=== PATIENT | male | born 1995 | race Caucasian/White ===

== ENCOUNTER 2017-05-29 12:07 | Emergency (ER) | payer OTHER ==
[~2017-05-29] VITALS: Ht 162.6 cm; Wt 57.0 kg
[~2017-05-29 12:07] MED LIST: VENTOLIN HFA18 GM IH; ZOLPIDEM TARTRAT5 MG PO
[2017-05-29 12:47] LABS: HEMATOCRIT 44.5 % (38.0-50.0); MCH 31.8 PG (29.0-34.0); MCHC 35.1 G/DL (30.0-36.0); MCV 90.6 FL (86-99); MEAN PLAT.VOLUME 10.1 uM^3 (9.0-12.4); PLATELET COUNT 247 K/uL (156-360); RBC DIS.WIDTH-CV 11.8 % (11.8-14.6); RED BLOOD COUNT 4.91 M/uL (4.00-5.50); WHITE BLOOD COUNT 6.3 K/uL (4.1-10.2)
[2017-05-29 12:57] LABS: CHLORIDE 106 mEq/L (99-109); POTASSIUM 4.2 mEq/L (3.7-5.4); SODIUM 143 mEq/L (136-147)
[2017-05-29 12:59] LABS: GLUCOSE 92 mg/dL (70-99)
[2017-05-29 13:01] LABS: ANION GAP 9 MEQ/L (2-14); TOTAL BILIRUBIN 0.7 mg/dL (0.0-1.0)
[2017-05-29 13:03] LABS: ALKALINE PHOSPHATASE 57 IU/L (3-129); GFR ESTIMATE (CALCULATED) > 59 mL/min/
[2017-05-29 13:04] LABS: UREA NITROGEN (BUN) 8 mg/dL (9-23)
[2017-05-29 13:40] LABS: LIPASE 22 U/L (1.0-51.0)
[2017-05-29 14:00] LABS: ADD MIUA? YES; BILIRUBIN NEGATIVE; BLOOD SMALL; COLOR STRAW ((YELLOW)); GLUCOSE (STRIP) NEGATIVE; KETONES NEGATIVE; LEUKOCYTES NEGATIVE; NITRITE NEGATIVE; PROTEIN (STRIP) NEGATIVE; UROBILINOGEN 0.2 MG/DL (0.2-1.0)
[2017-05-29 14:03] LABS: BACTERIA NONE SEEN /HPF; EPITHELIAL CELLS NONE SEEN /HPF; MUCUS NONE SEEN /LPF; RED BLOOD CELLS 0-5 /HPF (0-5); UCUL ADDED? NO; WHITE BLOOD CELLS 0-5 /HPF (0-5)
[2017-05-29] MEDS ORDERED: ZOFRAN ODT4 MG PO (14:43)
[2017-05-29 14:54] VITALS: BP 109/58
== END 2017-05-29 14:55 | disposition home or self-care (01) ==
LOC: EME 12:07
DX: R10.31 Right lower quadrant pain (principal); R11.2 Nausea with vomiting, unspecified; J45.909 Unspecified asthma, uncomplicated; F17.200 Nicotine dependence, unspecified, uncomplicated; Z88.0 Allergy status to penicillin; Z88.6 Allergy status to analgesic agent
CPT/HCPCS: 74177; 80053; 81003; 83690; 85027; 99281; 99285; J7030